=== PATIENT | male | born 1985 | race Caucasian/White ===

== ENCOUNTER → 2019-10-28 | Day surgery (SDC) | payer BC ==
[2019-10-17 17:04] LABS: BASOPHIL # 0.1 10^3/uL (0.0-0.1); BASOPHIL % 0.6 % (0.0-0.2); EOSINOPHIL # 0.1 10^3/uL (0.0-0.2); EOSINOPHIL % 0.6 % (0.0-5.0); LYMPHOCYTES # 2.4 10^3/uL (1.0-4.8); LYMPHOCYTES % 30.1 % (24.0-44.0); MEAN CORP HGB 27.4 pg (26-34); MONOCYTES # 0.7 10^3/uL (0.3-0.8); MONOCYTES % 8.7 % (5.0-12.0); NEUTROPHIL # 4.8 10^3/uL (1.8-7.7); NEUTROPHILS % 59.9 % (41.0-85.0); RED CELL DISTRIBUTION WIDTH 13.5 % (11.5-14.5)
[2019-10-17 17:28] LABS: CARBON DIOXIDE 28.2 mmol/L (20.0-32)
[~2019-10-28] VITALS: Ht 182.9 cm; Wt 104.3 kg
[2019-10-28] VITALS (7 sets, daily range): BP systolic 119–147; BP diastolic 67–88
[~2019-10-28] MED LIST: ACET-685 PO; ASPI-484 PO; CIPR500T86 PO; DECADRON ONE; DIPRIVAN IV ONE; LACTATED RINGERS 1,000 ML IV SCH; LEVAQUIN 100 ML IV ONE; LIDOCAINE 2% VIAL ONE; NORCO 7.5MG PO PRN; SODIUM CHLORIDE IR ONE; SUBLIMAZE IV PRN; SUBLIMAZE ONE; TORADOL ONE; VERSED ONE; ZOFRAN 4 MG/2 ML VIAL ONE
--- NOTE | 2019-10-28 10:56 | OPH ---
DATE OF SURGERY: 10/28/2019 PREOPERATIVE DIAGNOSIS: Elective sterilization. FINAL DIAGNOSIS: Elective sterilization. PROCEDURE: Bilateral vasectomy. DESCRIPTION OF PROCEDURE: The patient was brought to the operating room, was put in supine position on the operating room table. After the patient was given a satisfactory and adequate LMA general anesthesia, the genitalia and the scrotal area was then prepped and draped aseptically in the usual manner. First, the right scrotal area was then palpated and after the vasectomy was isolated, an Allis clamp was placed around it. An incision was done on the skin and by blunt and sharp dissection, the vas was exposed and this was clamped around it and then after isolating it, two clamps were placed and the vas was excised. After excision of the portion of the vas, both ends were fulgurated and sutured with 2-0 chromic catgut. There was no other bleeding noted. After that, the skin incision was then approximated with 2-0 chromic catgut in 2 places. The same procedure was done on the left side, isolating the vas, putting a clamp around it and the skin incision was then done after isolating the vas, two clamps were placed and the portion of the vas was then excised and both ends were fulgurated and sutured with 2-0 chromic catgut. There was no bleeding noted. Skin incision was reapproximated in 2 places with the use of 2-0 chromic catgut interrupted fashion. Dressing was applied. The patient was then awakened, was transferred to the recovery room in stable condition. Berny Reynolds MD DR: GORAN/christiano JOB# [id number]
== END | disposition home or self-care (01) | DRG 730 ==
LOC: SDC 07:23
PROVIDERS: ATTEND Urology
DX: Z30.2 Encounter for sterilization (principal); Z79.01 Long term (current) use of anticoagulants; Z88.0 Allergy status to penicillin; Z88.2 Allergy status to sulfonamides; Z79.82 Long term (current) use of aspirin; Z82.49 Family history of ischemic heart disease and other diseases of the circulatory system
CPT/HCPCS: 36415; 55250; 80051; 82565; 84520; 85025; 85610; 85730; 88302; A4217; J1100; J1885; J1956 ×2; J2001; J2250; J2405; J3010; J3490